=== PATIENT | male | born 1985 | race Caucasian/White ===

== ENCOUNTER 2019-04-24 13:37 | Emergency (ER) | payer OTHER ==
[~2019-04-24] VITALS: Ht 177.8 cm; Wt 97.5 kg
[~2019-04-24 13:37] MED LIST: AMOXICILLIN500 M1 PO; BACLOFEN 10MG T10 MG PO; HYDROCODONE-APA1 TA1 PO; LODINE XL500 MG PO; ROXICODONE30 M1 PO; ZYRTEC10 M2 PO
[2019-04-24] MEDS ORDERED: MAXITROL EYE DRO5 ML OPHTHALMIC ×2 (14:17→14:18)
[2019-04-24 14:30] VITALS: BP 147/89
== END 2019-04-24 14:30 | disposition home or self-care (01) ==
LOC: M.ERS 13:37
DX: S05.92XA Unspecified injury of left eye and orbit, initial encounter (principal); X58.XXXA Exposure to other specified factors, initial encounter; Y93.89 Activity, other specified; Y92.89 Other specified places as the place of occurrence of the external cause; Y99.8 Other external cause status